=== PATIENT | male | born 1935 | race Caucasian/White ===

== ENCOUNTER 2019-04-14 15:22 | Emergency (ER) | payer MEDICARE, OTHER ==
[~2019-04-14] VITALS: Ht 177.8 cm; Wt 85.3 kg
--- NOTE | 2019-04-14 15:42 | ED Cardiac General ---
History of Present Illness General Chief Complaint: Cardiac/General Problems Source: patient Exam Limitations: no limitations History of Present Illness Date Seen by Provider: Apr 14, 2019 Time Seen by Provider: 15:30 Initial Comments The patient is a very pleasant 83-year-old male presents via EMS for evaluation of palpitations. He states that he was sitting watching a presentation when his symptoms began. He reports that he has been having intermittent similar symptoms for several months and that this is being worked up as an outpatient by his primary care physician. He states recently he was at [facility] in [place] when he had a similar episode and felt like his heart was racing and he nearly fell due to weakness. He states that he wanted emergency department in [place] and was told that his heart rate was elevated after they interrogated his AICD. He was told that his device was functioning properly. He states that this is his third AICD and he has not had any problems with it. Upon arrival in emergency department the patient has absolutely no symptoms. When EMS arrived the patient's symptoms that are ready resolved. They did give him a full strength aspirin. He denies diaphoresis, nausea or vomiting, chest pain, shortness of breath, back pain, abdominal pain, or syncope. He is alert and oriented 4, calm, and appears to be in no distress. He reports a history of atrial fibrillation and is currently anticoagulated with our course. He also has a history of COPD. 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 APPRENTICE: Yes Associated Systoms: Denies Symptoms Allergies and Home Medications Allergies Coded Allergies: No Known Drug Allergies (Unverified , 04/14/19) Patient Home Medication List Home Medication List Reviewed: Yes Review of Systems Review of Systems Constitutional: no symptoms reported EENTM: No Symptoms Reported Respiratory: No Symptoms Reported Cardiovascular: Lightheadedness, Palpitations Gastrointestinal: No Symptoms Reported Genitourinary: No Symptoms Reported Musculoskeletal: no symptoms reported Skin: no symptoms reported Psychiatric/Neurological: No Symptoms Reported Endocrine: No Symptoms Reported Hematologic/Lymphatic: No Symptoms Reported All Other Systems Reviewed Negative Unless Noted: Yes Past Osgegnm-Auvlta-Ljucdb Hx Past Med/Social Hx: Reviewed Nursing Past Med/Soc Hx Patient Social History Physical Abuse: No Sexual Abuse: No Mistreated: No Fear: No Physical Exam Vital Signs Vital Signs - First Documented 04/14/19 15:23 Temp 98.4 Pulse 68 Resp 21 B/P (MAP) 147/82 (103) Pulse Ox 98 O2 Delivery Room Air Capillary Refill : Height, Weight, BMI Height: '" Weight: lbs. oz. kg; BMI Method: General Appearance: No Apparent Distress, WD/WN HEENT: PERRL/EOMI, Pharynx Normal Neck: Full Range of Motion, Normal Inspection, Non Tender, Supple Respiratory: Chest Non Tender, Lungs Clear, Normal Breath Sounds, No Accessory Muscle Use, No Respiratory Distress Cardiovascular: Regular Rate, Rhythm, No Edema, No Gallop, No JVD Gastrointestinal: Normal Bowel Sounds, No Organomegaly, No Pulsatile Mass, Non Tender, Soft Extremity: Normal Capillary Refill, Normal Range of Motion, Non Tender, No Calf Tenderness, Pedal Edema (left leg 2+, right leg 1+, pt reports this is chronic and at baseline for him) Neurologic/Psychiatric: Alert, Oriented x3, Normal Mood/Affect, twister tender paper II-XII Norm as Tested Skin: Normal Color, Warm/Dry Progress/Results/Core Measures Results/Orders Lab Results Laboratory Tests Test 04/14/19 15:28 Range/Units White Blood Count 8.4 4.3-11.0 10^3/uL Red Blood Count 4.39 4.35-5.85 10^6/uL Hemoglobin 13.1 L 13.3-17.7 G/DL Hematocrit 40 40-54 % Mean Corpuscular Volume 92 80-99 FL Mean Corpuscular Hemoglobin 30 25-34 PG Mean Corpuscular Hemoglobin Concent 33 32-36 G/DL Red Cell Distribution Width 14.5 10.0-14.5 % Platelet Count 220 130-400 10^3/uL Mean Platelet Volume 10.6 H 7.4-10.4 FL Neutrophils (%) (Auto) 62 42-75 % Lymphocytes (%) (Auto) 25 12-44 % Monocytes (%) (Auto) 9 0-12 % Eosinophils (%) (Auto) 3 0-10 % Basophils (%) (Auto) 1 0-10 % Neutrophils # (Auto) 5.2 1.8-7.8 X 10^3 Lymphocytes # (Auto) 2.1 1.0-4.0 X 10^3 Monocytes # (Auto) 0.8 0.0-1.0 X 10^3 Eosinophils # (Auto) 0.2 0.0-0.3 10^3/uL Basophils # (Auto) 0.1 0.0-0.1 10^3/uL Sodium Level 138 135-145 MMOL/L Potassium Level 4.2 3.6-5.0 MMOL/L Chloride Level 100 98-107 MMOL/L Carbon Dioxide Level 25 21-32 MMOL/L Anion Gap 13 5-14 MMOL/L Blood Urea Nitrogen 18 7-18 MG/DL Creatinine 0.92 0.60-1.30 MG/DL Estimat Glomerular Filtration Rate > 60 BUN/Creatinine Ratio 20 Glucose Level 109 H 70-105 MG/DL Calcium Level 9.2 8.5-10.1 MG/DL Corrected Calcium 9.1 8.5-10.1 MG/DL Magnesium Level 1.8 1.8-2.4 MG/DL Total Bilirubin 0.8 0.1-1.0 MG/DL Aspartate Amino Transf (AST/SGOT) 13 5-34 U/L Alanine Aminotransferase (ALT/SGPT) 12 0-55 U/L Alkaline Phosphatase 78 40-136 U/L Troponin I < 0.30 <0.30 NG/ML Pro-B-Type Natriuretic Peptide 646.1 H <75.0 PG/ML Total Protein 6.8 6.4-8.2 GM/DL Albumin 4.1 3.2-4.5 GM/DL My Orders Orders - ARACELI HAYES DO Ekg Tracing (04/14/19 15:25) Cbc With Automated Diff (04/14/19 15:33) Magnesium (04/14/19 15:33) Chest 1 View Ap/Pa Only (04/14/19 15:33) Comprehensive Metabolic Panel (04/14/19 15:33) O2 (04/14/19 15:33) Monitor-Rhythm Ecg Trace Only (04/14/19 15:33) Ed Iv/Invasive Line Start (04/14/19 15:33) Troponin I (04/14/19 15:33) Probnp Fs (04/14/19 15:33) Creatine Kinase Mb (04/14/19 15:33) Vital Signs/I&O 04/14/19 04/14/19 15:23 15:25 Temp 98.4 Pulse 68 Resp 21 B/P (MAP) 147/82 (103) Pulse Ox 98 95 O2 Delivery Room Air Room Air Progress Progress Note : Progress Note @1625 - patient and family updated on lab and imaging results which are acutely unremarkable. BNP is mildly elevated. The patient has no chest pain, shortness of breath, palpitations, or any other symptoms that are bothering him at this time. Workup today fails to reveal any emergent pathology. The patient is stable for discharge home at this time. Advised the patient to follow-up with his roller turner the next 1-2 days and to return to the emergency Department immediately for new or worsening symptoms. The patient expresses verbal understanding and agreement with plan. Comment @1524 - Normal sinus rhythm, rate of 67, left bundle branch block is present, normal axis, no acute ischemic findings noted, no STEMI, reviewed and inte rpreted by myself Diagnostic Imaging Diagonstic Imaging: Xray Comments [facility] [place], [place] NAME: JEROD ALONSO [facility] REC#: [id number] PT STATUS: REG ER : 1935 PHYSICIAN: ARACELI HAYES DO ADMIT DATE: 04/14/19/ER FS Draft Date of Exam:04/14/19 CHEST 1 VIEW AP/PA ONLY INDICATION: Chest tightness with weakness and dizziness. TIME OF EXAM: 03:44 p.m. COMPARISON: No prior studies are available for comparison. FINDINGS: Cardiac defibrillator is in place. Lungs are clear. No infiltrates are seen. There is no effusion or pneumothorax. There is some hyperinflation suggestive of COPD. IMPRESSION: No acute cardiopulmonary process is detected. Dictated on workstation # [id number] Dict: 04/14/19 1549 Trans: 04/14/19 1556 [id number] Interpreted by: VANIA CASTELLANOS MD Electronically signed by: Departure Impression Primary Impression: Palpitations Disposition: 01 HOME, SELF-CARE Condition: Stable Departure-Patient Inst. Decision time for Depature: 16:30 Patient Instructions: Palpitations Add. Discharge Instructions: Follow-up with her roller turner in the next 1-2 days. Return to the emergency Department immediately for new or worsening symptoms. ARACELI HAYES DO Apr 14, 2019 15:42
[2019-04-14 15:56] LABS: BASOPHILS % (AUTO) 1 % (0-10); EOSINOPHILS % (AUTO) 3 % (0-10); HEMATOCRIT 40 % (40-54); HEMOGLOBIN 13.1 G/DL (13.3-17.7); LYMPHOCYTES % (AUTO) 25 % (12-44); MEAN CORPUSCULAR HEMOGLOBIN 30 PG (25-34); MEAN CORPUSCULAR HGB CONC 33 G/DL (32-36); MEAN CORPUSCULAR VOLUME 92 FL (80-99); MEAN PLATELET VOLUME 10.6 FL (7.4-10.4); MONOCYTES % (AUTO) 9 % (0-12); NEUTROPHILS # (AUTO) 5.2 X 10^3 (1.8-7.8); NEUTROPHILS % (AUTO) 62 % (42-75); PLATELET COUNT 220 10^3/uL (130-400); RED CELL DISTRIBUTION WIDTH 14.5 % (10.0-14.5); WHITE BLOOD COUNT 8.4 10^3/uL (4.3-11.0)
[2019-04-14 15:57] LABS: BASOPHILS # (AUTO) 0.1 10^3/uL (0.0-0.1); EOSINOPHILS # (AUTO) 0.2 10^3/uL (0.0-0.3); LYMPHOCYTES # (AUTO) 2.1 X 10^3 (1.0-4.0); MONOCYTES # (AUTO) 0.8 X 10^3 (0.0-1.0)
--- NOTE | 2019-04-14 15:57 | Diagnostic Imaging Report ---
INDICATION: Chest tightness with weakness and dizziness. TIME OF EXAM: 03:44 p.m. COMPARISON: No prior studies are available for comparison. FINDINGS: Cardiac defibrillator is in place. Lungs are clear. No infiltrates are seen. There is no effusion or pneumothorax. There is some hyperinflation suggestive of COPD. IMPRESSION: No acute cardiopulmonary process is detected. Dictated by: Dictated on workstation # [id number]
[2019-04-14 16:17] LABS: ALANINE AMINOTRANSFERASE 12 U/L (0-55); ALBUMIN 4.1 GM/DL (3.2-4.5); ALKALINE PHOSPHATASE 78 U/L (40-136); BILIRUBIN,TOTAL 0.8 MG/DL (0.1-1.0); BUN/CREATININE RATIO 20; CALCIUM 9.2 MG/DL (8.5-10.1); CARBON DIOXIDE 25 MMOL/L (21-32); CHLORIDE 100 MMOL/L (98-107); CREATININE SERUM 0.92 MG/DL (0.60-1.30); GFR ESTIMATED > 60; GLUCOSE 109 MG/DL (70-105); MAGNESIUM 1.8 MG/DL (1.8-2.4); POTASSIUM 4.2 MMOL/L (3.6-5.0); SODIUM 138 MMOL/L (135-145); TOTAL PROTEIN 6.8 GM/DL (6.4-8.2)
[2019-04-14 16:49] VITALS: BP 153/79
[2019-04-16 15:16] LABS: CREATINE KINASE MB 2.7 NG/ML (<6.6)
== END 2019-04-14 16:49 | disposition home or self-care (01) ==
LOC: ER FS 15:24
DX: R00.2 Palpitations (principal); I48.91 Unspecified atrial fibrillation; J44.9 Chronic obstructive pulmonary disease, unspecified; Z79.01 Long term (current) use of anticoagulants; Z95.810 Presence of automatic (implantable) cardiac defibrillator
CPT/HCPCS: 36415; 71045; 80053; 82553; 83735; 83880; 84484; 85025; 93005; 93041